=== PATIENT | male | born 1965 | race Caucasian/White ===

== ENCOUNTER → 2022-05-23 | Outpatient (CLI) | payer BC ==
[~2022-05-23] MED LIST: CATHETER FLUSH 10 ML SYR IV PRN; HOLD METFORMIN - RECEIVED CONTRAST 20 ML VIAL IV SCH; IOHEXOL 350 MG/ML 100 ML (OMNIPAQUE 350) VIAL IV ONE; NS 100 ML (IVPB) BAG IV ONE
--- NOTE | 2022-05-23 08:44 | Diagnostic Imaging Report ---
PROCEDURE: CT abdomen and pelvis with contrast. TECHNIQUE: Multiple contiguous axial images were obtained through the abdomen and pelvis after administration of intravenous contrast. Auto Exposure Controls were utilized during the CT exam to meet ALARA standards for radiation dose reduction. All CT scans use one or more of the following dose optimizing techniques: automated exposure control, MA and/or KvP adjustment based on patient size and exam type or iterative reconstruction. INDICATION: Abdominal pain and diarrhea. FINDINGS: There is low-density in the liver suggestive of steatosis. No focal hepatic, gallbladder, pancreatic, adrenal gland or splenic abnormality is identified. Kidneys are also unremarkable in appearance. There is no evidence of hydronephrosis or urinary tract obstruction. There has been appendectomy. There are numerous diverticula throughout the left colon. There is no pericolonic edema or inflammation appreciated. Unopacified bladder is incompletely distended but otherwise unremarkable. There is fat extending into the left inguinal canal. There is no evidence of bowel hernia or obstruction. IMPRESSION: No acute abnormality is identified. Dictated by: Dictated on workstation # [id number]
== END ==
LOC: RAD FS 07:54
PROVIDERS: ATTEND Nurse Practitioner Family
DX: R10.9 Unspecified abdominal pain (principal); R19.7 Diarrhea, unspecified
CPT/HCPCS: 74177; Q9967